=== PATIENT | female | born 1945 | race Caucasian/White ===

== ENCOUNTER 2017-07-08 11:17 | Outpatient (CLI) | payer MEDICARE, OTHER ==
[2017-07-08 13:28] VITALS: BP 142/86
--- NOTE | 2017-07-08 14:14 | CARDIAC PROCEDURE NOTE ---
DATE OF SERVICE: 07/08/2017 00:00:00 PROTOCOL: Waldemar. EXERCISE TIME: 8 minutes 54 seconds. FUNCTIONAL AEROBIC IMPAIRMENT: Less than -20. HEART RATE RESPONSE: 74 to maximum 153. BLOOD PRESSURE RESPONSE: 142/86 to maximum 170/60. SYMPTOMS: No chest pain. ST SEGMENT RESPONSE: Upsloping ST segment with depressions in II, III, aVF at maximum exercise 1 mm. ARRHYTHMIAS: None detected. EXAM CHANGES: None. REASON FOR STOPPING TEST: The patient exceeded target heart rate. IMPRESSION: No significant EKG changes. No symptoms. CONCLUSION: Await echo report. JOB #: [id number] EXT JOB #:[id number]
== END 2017-07-08 11:18 | disposition home or self-care (01) ==
LOC: DI 11:17
PROVIDERS: ATTEND Internal Medicine
DX: R06.00 Dyspnea, unspecified (principal)
CPT/HCPCS: 93350

== ENCOUNTER 2019-03-13 16:18 | Outpatient (CLI) | payer MEDICARE, OTHER | END 2019-03-13 16:45 | disposition home or self-care (01) | LOC: LAB.R 16:18 | PROVIDERS: ATTEND Obstetrics & Gynecology | DX: R30.0 Dysuria (principal) | CPT/HCPCS: 87086 ==

== ENCOUNTER 2019-03-20 17:46 | Outpatient (CLI) | payer MEDICARE, OTHER ==
[2019-03-20 18:24] LABS: BASOPHILS % (AUTO) 1.2 %; EOSINOPHILS % (AUTO) 0.4 %; HGB - HEMOGLOBIN 14.3 g/dL (12.0-16.0); LYMPHOCYTES % (AUTO) 43.6 %; MEAN CORPUSCULAR HEMOGLOBIN 31.1 pg (27.0-31.0); MEAN CORPUSCULAR HGB CONC 32.9 g/dL (32.0-36.0); MEAN CORPUSCULAR VOLUME 94.6 fL (81.0-99.0); MEAN PLATELET VOLUME 9.1 fL (7.9-10.8); MONOCYTES % (AUTO) 8.9 %; NEUTROPHILS % (AUTO) 45.1 %; PLT - PLATELET COUNT 124 10^3/uL (130-450); RED CELL DISTRIBUTION WIDTH 13.5 % (12.0-15.0); WHITE BLOOD COUNT 2.6 x10^3/uL (4.8-10.8)
[2019-03-20 18:27] LABS: ABNORMAL LYMPHS % (MANUAL) 0 %
[2019-03-20 18:30] LABS: ALBUMIN/GLOBULIN RATIO 1.3 (1.0-2.2); BILIRUBIN,TOTAL 0.7 mg/dL (0.2-1.0); CREATININE 0.7 mg/dL (0.4-1.0); TOTAL PROTEIN 7.2 g/dL (6.7-8.2)
[2019-03-20 21:40] LABS: BAND NEUTROPHILS % (MANUAL) 4 %; DIFFERENTIAL COMMENT MANUAL DIFFERENTIAL; LYMPHOCYTES % (MANUAL) 30 %; MONOCYTES # (MANUAL) 0.2 10^3/uL (0.0-1.0); NEUTROPHILS # (MANUAL) 1.5 10^3/uL (1.5-6.6); NEUTROPHILS % (MANUAL) 52 %; PLATELET ESTIMATE, MANUAL NORMAL (130-450,000) (NORMAL); PLATELET MORPHOLOGY NORMAL APPEARANCE (NORMAL); RBC MORPHOLOGY (MULTIPLE) NORMAL APPEARANCE (NORMAL)
== END 2019-03-20 17:47 | disposition home or self-care (01) ==
LOC: LAB 17:46
PROVIDERS: ATTEND Internal Medicine
DX: R50.9 Fever, unspecified (principal)
CPT/HCPCS: 80053; 85025

== ENCOUNTER 2019-03-23 17:17 | Outpatient (CLI) | payer MEDICARE, OTHER ==
[2019-03-23 19:04] LABS: ALT ALANINE AMINOTRANSFERASE 431 IU/L (10-60); AST ASPARTATE AMINOTRANSFERASE 467 IU/L (10-42)
== END 2019-03-23 17:18 | disposition home or self-care (01) ==
LOC: LAB 17:17
PROVIDERS: ATTEND Obstetrics & Gynecology
DX: R74.0 Nonspecific elevation of levels of transaminase and lactic acid dehydrogenase [LDH] (principal)
CPT/HCPCS: 81599; 84450; 84460; 86704; 86706; 86708; 86803; 87340

== ENCOUNTER 2019-03-30 09:06 | Outpatient (CLI) | payer MEDICARE, OTHER ==
--- NOTE | 2019-03-30 16:03 | Ultrasound Report ---
Reason: TRANSAMINASES, SERUM, ELEVATED Procedure Date: 03/30/2019 Accession Number: [id number] / [id number] Procedure: US - Abdomen Complete CPT Code: FULL RESULT: EXAM: ABDOMEN ULTRASOUND EXAM DATE: 03/30/2019 10:00 AM. CLINICAL HISTORY: Elevated serum transaminases. COMPARISON: None. TECHNIQUE: Real-time scanning was performed with static images obtained. FINDINGS: Liver: Normal in size and echotexture. 16 cm. Main portal vein flow: Hepatopetal. Fat within the fissure for the falciform ligament is prominent. Gallbladder: Normal. No stones, wall thickening, or sonographic Fragoso's sign. Biliary System: Common bile duct measures 5 mm. No intrahepatic or extrahepatic ductal dilatation. Pancreas: Visualized portion is unremarkable. Kidneys: Right: 10.9 cm longitudinally. Normal. No contour-deforming mass, stones, or hydronephrosis. Left: 11.7 cm longitudinally. Normal. No contour-deforming mass, stones, or hydronephrosis. Spleen: 12.2 cm. Normal in size and echotexture. Aorta and Inferior Vena Cava: Unremarkable. Other: None. IMPRESSION: 1. Liver echotexture within normal limits. No fatty infiltration or cirrhosis evident. 2. Normal gallbladder. RADIA
== END 2019-03-30 09:07 | disposition home or self-care (01) ==
LOC: DI 09:06
PROVIDERS: ATTEND Obstetrics & Gynecology
DX: R74.0 Nonspecific elevation of levels of transaminase and lactic acid dehydrogenase [LDH] (principal)
CPT/HCPCS: 76700

== ENCOUNTER 2019-04-13 13:10 | Outpatient (CLI) | payer MEDICARE, OTHER ==
[2019-04-13] MEDS ORDERED: IOVERSOL 320 50 ML VIAL ONE (13:40)
[2019-04-13] MEDS ORDERED: IOVERSOL 320 100 ML VIAL IVP ONE ×2 (13:40→15:00)
[2019-04-13] MEDS ORDERED: IOVERSOL 320 50 ML VIAL PO ONE (15:00)
--- NOTE | 2019-04-16 11:37 | CT Report ---
Reason: INCREANGELA LFTS Procedure Date: 04/13/2019 Accession Number: [id number] / [id number] Procedure: CT - Abdomen/Pelvis W CPT Code: FULL RESULT: EXAM: CT ABDOMEN AND PELVIS WITH CONTRAST. EXAM DATE: 04/13/2019 02:59 PM. CLINICAL HISTORY: Increased liver function tests. COMPARISONS: ABDOMEN COMPLETE 03/30/2019 9:17 AM. TECHNIQUE: Routine helical CT imaging was performed through the abdomen and pelvis. IV contrast: OPTI 320 90 mL. Enteric contrast: Yes. Reconstructions: Coronal and sagittal. In accordance with CT protocol optimization, one or more of the following dose reduction techniques were utilized for this exam: automated exposure control, adjustment of mA and/or KV based on patient size, or use of iterative reconstructive technique. FINDINGS: Lung Bases: Lung bases are clear. No pleural or pericardial effusions. No cardiac enlargement. Small hiatal hernia noted. Liver: Scattered low density too small to characterize foci noted in the liver. Statistically, these probably represent benign cyst. Portal vein is patent. No liver mass or intrahepatic bile duct dilation. Gallbladder/Bile Ducts: Contracted gallbladder, otherwise unremarkable. Spleen: Normal. Pancreas: Normal. Adrenal Glands: Normal. Kidneys: No stones, contour-deforming masses, or hydronephrosis. Incidental parapelvic cyst. Peritoneal Cavity/Bowel: Normal. No free fluid, free air or adenopathy. No masses or acute inflammatory process. The appendix is well visualized and normal. Patchy diverticulosis is noted without inflammatory changes. Pelvic Organs: Partially calcified posterior uterine fibroid. Evaluation of the pelvis is limited due to streak artifact from the left hip arthroplasty. Otherwise, the bladder and visualized pelvic organs are within normal limits. No collections, ascites or adenopathy. Vasculature: Diffuse atheromatous plaques are present in the abdominal aorta and branch vessels. No aneurysm. Normal IVC. Bones: Streak artifacts are noted from the left hip arthroplasty. This limits the evaluation of the pelvic structures. Levoscoliosis of the lumbar spine is noted. No osteoblastic or osteolytic lesions. Other: None. IMPRESSION: 1. Normal liver. Patent portal vein. No mass or intrahepatic bile duct dilation. 2. Diverticulosis. Normal appendix. No inflammation. RADIA
== END 2019-04-13 13:11 | disposition home or self-care (01) ==
LOC: DI 13:10
PROVIDERS: ATTEND Internal Medicine
DX: R74.8 Abnormal levels of other serum enzymes (principal); R73.9 Hyperglycemia, unspecified; D69.6 Thrombocytopenia, unspecified; K57.30 Diverticulosis of large intestine without perforation or abscess without bleeding
CPT/HCPCS: 36415; 74177; 80053; 81599; 82105; 82390; 82728; 83036; 83540; 84155; 84165; 84466; 85025; Q9967

== ENCOUNTER 2019-05-22 17:22 | Outpatient (CLI) | payer MEDICARE, OTHER ==
[2019-05-22 17:46] LABS: ALBUMIN 4.1 g/dL (3.2-5.5); BILIRUBIN,DIRECT 0.1 mg/dL (0.1-0.5); BILIRUBIN,TOTAL 0.5 mg/dL (0.2-1.0); TOTAL PROTEIN 7.4 g/dL (6.7-8.2)
== END 2019-05-22 17:23 | disposition home or self-care (01) ==
LOC: LAB 17:22
PROVIDERS: ATTEND Physician Assistant
DX: R94.5 Abnormal results of liver function studies (principal)
CPT/HCPCS: 36415; 80076

== ENCOUNTER 2020-01-14 16:44 | Outpatient (CLI) | payer MEDICARE, OTHER | END 2020-01-14 16:45 | disposition home or self-care (01) | LOC: COV 16:44 | PROVIDERS: ATTEND Family Medicine | DX: R06.02 Shortness of breath (principal) | CPT/HCPCS: 81599 ==